=== PATIENT | female | born 1935 | race Caucasian/White ===

== ENCOUNTER 2016-10-02 10:32 | Day surgery (SDC) | payer MEDICARE, OTHER ==
[~2016-10-02] VITALS: Ht 168.9 cm; Wt 72.1 kg
[2016-10-02] VITALS (10 sets, daily range): BP systolic 178–238; BP diastolic 62–106; PULSE 67–76; RESP 14–21; TEMP 97.4–97.8; O2SAT 95–100; Ht 168.9 cm; Wt 72.1 kg
[~2016-10-02 10:32] MED LIST: ACET-2321 PO; ASCO-296 PO; ASPI-558 PO; CALC600T12 PO; CLOP75TA19 PO; DENO60DI SQ; GABA-222 PO; IBUP-1724 PO; LEVE500T26 PO; LOSA25TA34 PO
--- OUTSIDE RECORDS SUMMARY | 2016-10-02 10:37 | XMS REPORT | Continuity of Care Document ---
Author Author Helio SARMIENTO, Calderon SANCHEZ Ambulatory Address [address] [place] [address] Phone Care Team Providers Care Saw Superintendent Name Role Phone Velasquez Hutton PP Unavailable Payers Payer name Insurance type Covered constitution party ID Authorization(s) Unknown Problems Condition Effective Dates (start - stop) Clinical Status Metatarsal fracture - *Acute Syncope - Episodic Ankle sprain - *Acute Hypercholesterolemia - *Chronic Spasm of muscle - *Chronic Mixed Hyperlipidemia - Chronic Osteoporosis - Chronic Hypertension, Benign - Chronic Abnormality of gait - Chronic Unspecified cerebrovascular disease - Chronic Malignant Neoplasm, Breast - Chronic Influenza Vaccine - Faint - *Acute Head injury - *Acute Bronchitis, Acute - *Acute Syncope - Recurrent Head injury - *Acute Fracture of metatarsal bone(s), closed - *Acute Hypertension, Benign - *Chronic Hypotension, Orthostatic - Changing Hypercholesterolemia - *Chronic Abnormality of gait - *Chronic Hypertension, Benign - *Chronic Syncope - *Chronic Abnormal brain MRI - *Chronic Osteoporosis - *Chronic Mixed Hyperlipidemia - *Chronic Malignant Neoplasm, Breast - *Chronic Unspecified cerebrovascular disease - *Chronic Abnormality of gait - *Chronic Hypertension, Benign - Chronic Osteoporosis - Chronic Mixed Hyperlipidemia - Chronic Malignant Neoplasm, Breast - Chronic Unspecified cerebrovascular disease - Chronic Abnormality of gait - Chronic Leg pain, right - *Chronic Hypertension, Benign - *Chronic Fracture of metatarsal bone(s), closed - *Acute Syncope - Recurrent Fracture of metatarsal bone(s), closed - *Chronic Fracture of metatarsal bone(s), closed - Chronic Leg pain, left - *Chronic Orthostatic hypotension - Intermittent Other and unspecified hyperlipidemia - *Chronic Osteoporosis - *Chronic Osteoporosis - Chronic PURE HYPERCHOLESTEROLEM - PARALYSIS AGITANS - BENIGN HYPERTENSION - OSTEOPOROSIS NOS - LUMBAR DISC DISPLACEMENT - LUMB/LUMBOSAC DISC DEGEN - POSTLAMINECTOMY SYND NOS - SPIN STEN,LUMBR WO DERICK - LUMBAGO - LUMBOSACRAL NEURITIS NOS - OSTEOPOROSIS NOS - IDIOPATHIC SCOLIOSIS - SYNCOPE AND COLLAPSE - PURE HYPERCHOLESTEROLEM - PARALYSIS AGITANS - CHRONIC PAIN NEC - CHRONIC PAIN SYNDROME - BENIGN HYPERTENSION - MITRAL VALVE DISORDER - ASYMPT VARICOSE VEINS - MENOPAUSAL DISORDER NEC - LUMBOSACRAL SPONDYLOSIS - Family History Family Member Diagnosis Age At Onset Status Mother (Unknown) Hypertension Yes Brother (Unknown) Hypertension Yes Brother (Unknown) Diabetes Yes Family h/o (Unknown) Cancer - thyroid Yes Father (Unknown) Heart disease Yes Mother (Unknown) Diabetes Yes Social History Social History Element Description Quantity Unknown Allergies, Adverse Reactions, Alerts Substance Reaction Severity Status PERINDOPRIL ERBUMINE cough Unknown PERINDOPRIL ERBUMINE severe cough Unknown HYDROCHLOROTHIAZIDE bp drops Unknown Medications Medication Instructions Dosage Effective Dates (start - stop) Status gabapentin 300 mg capsule take 2 Capsule (600MG) by oral route 3 times every day 600 MG - Active VITAMIN [id number] ACID (unknown strength) Takes 2 tablets BID - 2013 No Longer Active multivitamin tablet take 1 Tablet by Oral route every day 0 - Active Aspir-81 81 mg tablet,delayed release take 1 tablet (81MG) by oral route every day 81 MG - Active Vitamin C 500 mg tablet take 1 by Oral route every day 0 - Active Tylenol Extra Strength 500 mg tablet take 2 tablet (1000MG) by oral route every 6 hours as needed 1000 MG - Active Fosamax 70 mg tablet Take 1 tablet by mouth every week. - Active Plavix 75 mg tablet take 1 tablet (75MG) by oral route every day 75 MG Mar - Active triamcinolone acetonide 0.1 % topical cream apply by topical route 2 times every day a thin layer to the affected area(s) 0 - Active Keppra 500 mg tablet take 1 tablet (500MG) by oral route 2 times every day 500 MG - Active Immunizations Vaccine Date Status Comments Flu (split) (3 yrs or older) completed Fluzone HD completed - Completed reason: other provider Td (adult) completed - Completed reason: source unspecified pneumo (2 yrs or older) (PPV23) completed - Completed reason: source unspecified Zoster completed - Completed reason: source unspecified Results Test Name Date and Time Measure Units Reference Range Abnormal Flag Comments Unknown Vital Signs Date / Time: Height Weight Pulse Rate Blood Pressure Temperature /11:02:00 77 /min 118/76 mm[Hg] 98.1 F Procedures Procedure Date Unknown Encounters Encounter Location Date Patient Visit [facility] Patient Visit [facility] Patient Visit [facility] Patient Visit [facility] Patient Visit [facility] Patient Visit [facility] Patient Visit [facility] Patient Visit [facility] Patient Visit [facility] Patient Visit [facility] Patient Visit [facility] Patient Visit [facility] Patient Visit [facility] Patient Visit Patient Visit [facility] Patient Visit [facility] Advance Directives Directive Effective Date Unknown
--- OUTSIDE RECORDS SUMMARY | 2016-10-02 10:37 | XMS REPORT | Continuity of Care Document ---
Author Author Iza Chris Ambulatory Address [address] [place] [id number] Phone Unavailable Care Team Providers Care In Room Dining Server Name Role Phone Velasquez Hutton PP Unavailable Payers Payer name Insurance type Covered green party ID Authorization(s) Unknown Problems Condition Effective Dates (start - stop) Clinical Status Hypotension, Orthostatic - Changing Hypercholesterolemia - *Chronic Abnormality of gait - *Chronic Hypertension, Benign - *Chronic Syncope - *Chronic Abnormal brain MRI - *Chronic Mixed Hyperlipidemia - Chronic Osteoporosis - Chronic Hypertension, Benign - Chronic Abnormality of gait - Chronic Unspecified cerebrovascular disease - Chronic Malignant Neoplasm, Breast - Chronic Spasm of muscle - *Chronic Hypercholesterolemia - *Chronic Influenza Vaccine - Faint - *Acute Head injury - *Acute Bronchitis, Acute - *Acute Ankle sprain - *Acute Syncope - Episodic Metatarsal fracture - *Acute Syncope - Recurrent Head injury - *Acute Fracture of metatarsal bone(s), closed - *Acute Hypertension, Benign - *Chronic Osteoporosis - *Chronic Mixed Hyperlipidemia - *Chronic Hypertension, Benign - *Chronic Leg pain, right - *Chronic Abnormality of gait - Chronic Unspecified cerebrovascular disease - Chronic Malignant Neoplasm, Breast - Chronic Mixed Hyperlipidemia - Chronic Osteoporosis - Chronic Hypertension, Benign - Chronic Abnormality of gait - *Chronic Unspecified cerebrovascular disease - *Chronic Malignant Neoplasm, Breast - *Chronic Fracture of metatarsal bone(s), closed - *Acute Syncope - Recurrent PURE HYPERCHOLESTEROLEM - PARALYSIS AGITANS - BENIGN HYPERTENSION - OSTEOPOROSIS NOS - LUMBOSACRAL SPONDYLOSIS - MENOPAUSAL DISORDER NEC - ASYMPT VARICOSE VEINS - MITRAL VALVE DISORDER - BENIGN HYPERTENSION - CHRONIC PAIN SYNDROME - CHRONIC PAIN NEC - PARALYSIS AGITANS - PURE HYPERCHOLESTEROLEM - SYNCOPE AND COLLAPSE - IDIOPATHIC SCOLIOSIS - OSTEOPOROSIS NOS - LUMBOSACRAL NEURITIS NOS - LUMBAGO - SPIN STEN,LUMBR WO DERICK - POSTLAMINECTOMY SYND NOS - LUMB/LUMBOSAC DISC DEGEN - LUMBAR DISC DISPLACEMENT - Osteoporosis - Chronic Osteoporosis - *Chronic Other and unspecified hyperlipidemia - *Chronic Orthostatic hypotension - Intermittent Leg pain, left - *Chronic Fracture of metatarsal bone(s), closed - Chronic Fracture of metatarsal bone(s), closed - *Chronic Fracture of metatarsal bone(s), closed - Chronic Fracture of metatarsal bone(s), closed - *Chronic Family History Family Member Diagnosis Age At [...] Dosage Effective Dates (start - stop) Status Keppra 500 mg tablet take 1 tablet (500MG) by oral route 2 times every day 500 MG - Active multivitamin tablet take 1 Tablet by [...] every day 75 MG Mar - Active gabapentin 300 mg capsule take 2 Capsule (600MG) by oral route 3 times every day 600 MG - Active triamcinolone acetonide 0.1 % topical cream apply by topical route 2 times every day a thin layer to the affected area(s) 0 - Active Immunizations Vaccine Date Status Comments [...] Height Weight Pulse Rate Blood Pressure Temperature /10:04:00 67.00 in 160.00 lbs 88 /min 142/90 mm[Hg] Procedures Procedure Date Unknown Encounters Encounter Location Date Patient Visit [facility] Mur Card Patient Visit [facility] Patient Visit [facility] Patient Visit [facility] Patient Visit [facility] Patient Visit [facility] Patient Visit [facility] Patient Visit [facility] Patient Visit [facility] Patient Visit Patient Visit [facility] Patient Visit [facility] Advance Directives Directive Effective Date Unknown
--- OUTSIDE RECORDS SUMMARY | 2016-10-02 10:37 | XMS REPORT | Continuity of Care Document ---
Author Author [facility] Organization [facility] Address Unknown Phone Unavailable Allergies Active Description Code Type Severity Reaction Onset Reported/Identified Relationship to Patient Clinical Status Yes ACEON [id number] Drug Allergy N/A N/A Yes HYDROCHLOROTHIAZIDE [id number] Drug Allergy N/A N/A Medications Medication Packaging Start Date Stop Date Route Dosage Sig [id number] 05/10/2013 Oral three times daily [id number] 01/10/2014 Oral twice daily Problems Procedures Results Encounters ACCT No. Visit Date/Time Discharge Status Pt. Type Provider Facility Loc./Unit Complaint [id number] 08/16/2013 09:10:00 08/16/2013 23 :59:59 [facility] Outpatient [id number] 07/19/2013 08:46:00 07/19/2013 23 :59:59 CLS Outpatient [id number] 07/14/2013 09:58:00 07/14/2013 23 :59:59 CLS Outpatient [id number] 07/05/2013 08:09:00 07/05/2013 23 :59:59 CLS Outpatient [id number] 07/03/2013 10:56:00 07/03/2013 23 :59:59 CLS Outpatient
--- OUTSIDE RECORDS SUMMARY | 2016-10-02 10:37 | XMS REPORT | Referral Summary ---
Author Author [facility] Organization [facility] Address Unknown Phone Unavailable Care Team Providers Care Operating Room Assistant Name Role Phone Ciara Hutton Primary Care Physician [phone] Encounter VC Date(s): 10/20/14 - 10/20/14 [facility], [address] [place] [id number] Discharge Diagnosis: Tinea corporis Discharge Disposition: 01-Home or Self Care Attending Physician: Barry Carey DO Admitting Physician: Barry Carey DO Vital Signs Most recent to 1 oldest [Reference Range]: Temperature Tympanic 36.1 degC [36.6-38.1 degC] *LOW* (10/20/14 9:33 AM) Peripheral Pulse 78 bpm Rate [60-100 bpm] (10/20/14 9:33 AM) Blood Pressure 115/62 mmHg [90-140/60-90 mmHg] (10/20/14 9:33 AM) Problem List Condition Effective Dates Status Health Status Informant Abnormal gait Active (finding)(Confirmed) Back Active pain/lumbagia(Confir med) Benign essential Active hypertension (disorder)(Confirmed ) Breast Active cancer(Confirmed) Cerebrovascular Active disease (disorder)(Confirmed ) Chronic pain Active syndrome(Confirmed) Closed fracture of Active metatarsal bone (disorder)(Confirmed ) passing Active out(Confirmed)1 post Active laminectomy(Confirme d)2 degenerated disc Active lumbar(Confirmed)3 Lt Active breast(Confirmed)4 imaging and mild Active carotid narrowin(Confirmed)5 shingles Active vaccine(Confirmed)6 FRACTURE OF Active METATARSAL BONE(S), CLOSED(Confirmed) Gait Active disturbance(Confirme d) High Active cholesterol(Confirme d) Hyperlipidemia(Confi Active rmed) Hypertension/high Active BP(Confirmed) Leg pain, Active left(Confirmed) Lumbar disc Active herniations(Confirme d) Malignant neoplasm Active of female breast (disorder)(Confirmed ) Mitral valve Active prolapse(Confirmed) Mixed hyperlipidemia Active (disorder)(Confirmed ) Orthostatic Active hypotension (disorder)(Confirmed ) ORTHOSTATIC Active HYPOTENSION(Confirme d) Osteoporosis Active (disorder)(Confirmed ) Osteoporosis(Confirm Active ed) Pain in limb Active (finding)(Confirmed) Parkinson's Active disease(Confirmed) Postmenopausal(Confi Active rmed) Radiculitis Active thoracic/lumbar(Conf irmed) Scoliosis kyohos Active idiopt(Confirmed)7 Small vessel Active disease, cerebrovascular(Conf irmed) Spinal stenosis Active lumbar(Confirmed) Spondylosis Active lumbosacral(Confirme d) Syncope(Confirmed) Active Syncope and collapse Active (disorder)(Confirmed ) Varicose Active veins(Confirmed) 1see nextgen 2see nextgen 3see nextgen 4see nextgen 5see nextgen 6see nextgen 7see nextgen Allergies, Adverse Reactions, Alerts Substance Reaction Severity Status hydrochlorothiazide bp drops Active HYPOTENSION Perindopril Erbumine Cough Unknown Active Medications alendronate 70 mg oral tablet See Instructions, TAKE 1 TABLET BY MOUTH WEEKLY ON AN EMPTY STOMACH. REMAIN UPRIGHT FOR 30 MINUTES, # 12 tabs, 1 Refill(s), eRx: [facility] [id number] , TAKE 1 TABLET BY MOUTH WEEKLY ON AN EMPTY STOMACH. REMAIN UPRIGHT FOR 30 MINUTES Start Date: 12/12/14 Status: Ordered aspirin 81 mg oral tablet, disintegrating 1 tabs, Oral, Daily, # 30 tabs, 0 Refill(s) Start Date: 01/03/14 Status: Ordered clopidogrel 75 mg oral tablet See Instructions, TAKE 1 TABLET BY MOUTH DAILY, # 90 tabs, eRx: [facility] [id number], TAKE 1 TABLET BY MOUTH DAILY Start Date: 03/24/15 Status: Ordered gabapentin 300 mg oral capsule 1 caps, Oral, TID, 0 Refill(s) Start Date: 01/03/14 Status: Ordered Keppra 500 mg oral tablet 2 tabs, Oral, BID, 0 Refill(s) Start Date: 01/03/14 Status: Ordered Multivitamins oral tablet 1 tabs, Oral, Daily, 0 Refill(s) Start Date: 01/03/14 Status: Ordered triamcinolone 0.1% topical cream See Instructions, APPLY BY TOPICAL ROUTE 2 TIMES EVERY DAY A THIN LAYER TO THE AFFECTED AREA(S), # 30 unknown unit, eRx: [facility] [id number], APPLY BY TOPICAL ROUTE 2 TIMES EVERY DAY A THIN LAYER TO THE AFFECTED AREA(S) Start Date: 08/01/14 Status: Ordered Tylenol Extra Strength 500 mg oral tablet 1,000 mg 2 tabs, Oral, q6hr, as needed for pain, 0 Refill(s) Start Date: 01/03/14 Status: Ordered Vitamin C 500 mg oral tablet 1 tabs, Oral, Daily, 0 Refill(s) Start Date: 01/03/14 Status: Ordered Results No data available for this section Immunizations Vaccine Date Refusal Reason influenza virus vaccine, inactivated1 02/08/15 influenza virus vaccine, inactivated 02/21/14 influenza virus vaccine, live 02/16/13 influenza virus vaccine, live 02/27/12 pneumococcal 13-valent conjugate vaccine 07/12/14 pneumococcal 23-polyvalent vaccine 03/02/99 tetanus-diphth toxoids (Td) adult/adol 11/01/05 zoster vaccine live 11/12/07 1Result Comment: [02/13/2015] Fluzone High-dose 2014- 0.5 ml syr Procedures Procedure Date Related Diagnosis Body Site L5-S1 laminectomy and discectomy 12/[address] Avery, 10 yr follow up 1999 RT Simple Mastectomy- no ca 1990 LT Mastectomy 1989 breast biopsies Caudal 11-27-2010 RT L5-S1 AND S1 TRANSFORAMINAL 01-24-2011 RT L5-S1 TRANSFORAMINAL 11-13-2010 Social History Social History Type Response Smoking Status Never smoker Assessment and Plan Extracted from: Title: Office Visit Note Author: Barry Carey DO Date: 10/20/14 Assessment/Plan Tinea corporis 1. Skin scraping done today, report is pending. 2. Lotrisone application 3 times a day for 2 weeks. Follow-up if no improvement. Ordered: clotrimazole-betamethasone topical, 1 katherine, Topical, TID, X 14 days, # 45 g, 0 Refill(s), Pharmacy: [facility] [id number] [facility] Fungal Smear Office Visit Level 3 Est [address]
--- OUTSIDE RECORDS SUMMARY | 2016-10-02 10:37 | XMS REPORT | Referral Summary ---
Author Author [facility] Organization [facility] Address Unknown Phone Unavailable Care Team Providers Care Assessor Name Role Phone Ciara Hutton Primary Care Physician [phone] Encounter VC Date(s): 03/09/15 - 03/09/15 [facility], Family [address] [place] [address] Discharge Disposition: 01-Home or Self Care Attending Physician: Joe Schrader APRN Admitting Physician: Joe Schrader APRN Vital Signs Most recent to 1 oldest [Reference Range]: Temperature Tympanic 36.0 degC [36.6-38.1 degC] *LOW* (03/09/15 9:00 AM) Peripheral Pulse 72 bpm Rate [60-100 bpm] (03/09/15 9:00 AM) Respiratory Rate 18 br/min [14-20 br/min] (03/09/15 9:00 AM) Blood Pressure 144/76 mmHg [90-140/60-90 mmHg] *HI* (03/09/15 9:00 AM) Problem List Condition Effective Dates Status [...] MINUTES, # 12 tabs, 1 Refill(s), eRx: [facility] [id number] , TAKE 1 TABLET BY MOUTH WEEKLY ON AN EMPTY STOMACH. REMAIN UPRIGHT FOR 30 MINUTES Start Date: 12/12/14 Status: Ordered aspirin 81 mg oral tablet, disintegrating 1 tabs, Oral, Daily, # 30 tabs, 0 Refill(s) Start Date: 01/03/14 Status: Ordered clopidogrel 75 mg oral tablet See Instructions, TAKE 1 TABLET BY MOUTH DAILY, # 90 tabs, eRx: [facility] [id number], TAKE 1 TABLET BY MOUTH DAILY Start Date: 12/23/14 Status: Ordered gabapentin 300 mg oral capsule [...] AFFECTED AREA(S), # 30 unknown unit, eRx: [facility] [id number], APPLY BY TOPICAL ROUTE 2 TIMES EVERY [...] Smoking Status Never smoker Assessment and Plan No data available for this section
--- OUTSIDE RECORDS SUMMARY | 2016-10-02 10:37 | XMS REPORT | Referral Summary ---
Author Author [facility] Organization [facility] Address Unknown Phone Unavailable Care Team Providers Care Cabinet Builder Name Role Phone Ciara Hutton Primary Care Physician [phone] Encounter VC Date(s): 03/13/15 - 03/13/15 [facility] [address] [place] [id number] Discharge Disposition: 01-Home or Self Care Attending Physician: Joe Schrader APRN Admitting Physician: Joe Schrader APRN Vital Signs Most recent to 1 oldest [Reference Range]: Peripheral Pulse 66 bpm Rate [60-100 bpm] (03/13/15 10:57 AM) Respiratory Rate 18 br/min [14-20 br/min] (03/13/15 10:57 AM) Blood Pressure 144/86 mmHg [90-140/60-90 mmHg] *HI* (03/13/15 10:57 AM) Problem List Condition Effective Dates Status [...] stenosis Active lumbar(Confirmed) Spondylosis Active lumbosacral(Confirme d) Syncope and collapse Active (disorder)(Confirmed ) Syncope(Confirmed) Active Varicose Active veins(Confirmed) 1see nextgen 2see nextgen 3see nextgen 4see nextgen 5see nextgen 6see nextgen 7see nextgen Allergies, Adverse Reactions, Alerts Substance Reaction Severity Status hydrochlorothiazide bp drops Active HYPOTENSION Perindopril Erbumine Cough Unknown Active Medications alendronate 70 mg oral tablet See Instructions, TAKE 1 TABLET BY MOUTH WEEKLY ON AN EMPTY STOMACH. REMAIN UPRIGHT FOR 30 MINUTES, # 12 tabs, eRx: [facility] [id number], TAKE 1 TABLET BY MOUTH WEEKLY ON AN EMPTY STOMACH. REMAIN UPRIGHT FOR 30 MINUTES Start Date: 08/21/15 Status: Ordered aspirin 81 mg oral tablet, disintegrating 1 tabs, Oral, Daily, # 30 tabs, 0 Refill(s) Start Date: 01/03/14 Status: Ordered clopidogrel 75 mg oral tablet See Instructions, TAKE 1 TABLET BY MOUTH DAILY, # 90 tabs, eRx: [facility] [facility] [id number], TAKE 1 TABLET BY MOUTH DAILY Start Date: 09/18/15 Status: Ordered gabapentin 300 mg oral capsule 1 caps, Oral, TID, 0 Refill(s) Start Date: 01/03/14 Status: Ordered Keppra 500 mg oral tablet 2 tabs, Oral, BID, 0 Refill(s) Start Date: 01/03/14 Status: Ordered losartan 25 mg oral tablet See Instructions, TAKE 1/2 TABLET(12.5 MG) BY MOUTH DAILY, # 45 tabs, 1 Refill(s ), eRx: [facility] [facility] [id number], TAKE 1/2 TABLET(12.5 MG) BY MOUTH DAILY Start Date: 09/15/15 Status: Ordered Multivitamins oral tablet 1 tabs, Oral, Daily, 0 Refill(s) Start Date: 01/03/14 Status: Ordered triamcinolone 0.1% topical cream See Instructions, APPLY BY TOPICAL ROUTE 2 TIMES EVERY DAY A THIN LAYER TO THE AFFECTED AREA(S), # 30 unknown unit, eRx: [facility] [id number], APPLY BY TOPICAL ROUTE 2 TIMES EVERY [...] Procedures Procedure Date Related Diagnosis Body Site Arthrocentesis, aspiration and/or injection, 03/13/15 intermediate joint or bursa (eg, temporomandibular, acromioclavicular, wrist, elbow or ankle, olecranon bursa); without ultrasound guidance L5-S1 laminectomy and discectomy 12/[address] Avery, 10 yr follow up 1999 RT Simple Mastectomy- no ca 1990 LT Mastectomy 1989 breast biopsies Caudal 11-27-2010 RT L5-S1 AND S1 TRANSFORAMINAL 01-24-2011 RT L5-S1 TRANSFORAMINAL 11-13-2010 Social History Social History Type Response Smoking Status Never smoker Assessment and Plan No data available for this section
--- OUTSIDE RECORDS SUMMARY | 2016-10-02 10:37 | XMS REPORT | Referral Summary ---
Author Author [facility] Organization [facility] Address Unknown Phone Unavailable Care Team Providers Care Automotive General Sales Manager Name Role Phone Ciara Hutton Primary Care Physician [phone] Encounter Date(s): 02/01/16 - 02/01/16 [facility] [address] [place] [address] [place] Discharge Diagnosis: Hyperlipidemia Discharge Diagnosis: Breast cancer Discharge Diagnosis: Spinal stenosis lumbar Discharge Diagnosis: Osteoporosis Discharge Diagnosis: Frail Elderly Discharge Diagnosis: Bilateral impacted cerumen Discharge Diagnosis: Benign essential hypertension Discharge Diagnosis: Seborrheic keratoses Discharge Disposition: 01-Home or Self Care Attending Physician: Velasquez Hutton MD Admitting Physician: Velasquez Hutton MD Vital Signs Most recent to 1 oldest [Reference Range]: Temperature Tympanic 35.5 degC [36.6-38.1 degC] *LOW* (02/01/16 8:37 AM) Peripheral Pulse 80 bpm Rate [60-100 bpm] (02/01/16 8:37 AM) Blood Pressure 142/71 mmHg [90-140/60-90 mmHg] *HI* (02/01/16 8:37 AM) Problem List Condition Effective Dates Status [...] Active cholesterol(Confirme d) Hyperlipidemia(Confi Active rmed) Hypertension/high < 01/03/14 Resolved BP(Confirmed) Leg pain, Active left(Confirmed) Lumbar disc Active herniations(Confirme d) Malignant neoplasm Active of female breast (disorder)(Confirmed ) Mitral valve Active prolapse(Confirmed) Mixed hyperlipidemia Active (disorder)(Confirmed ) Obesity(Confirmed) Active patient Orthostatic Active hypotension (disorder)(Confirmed ) ORTHOSTATIC Active [...] FOR 30 MINUTES, # 12 tabs, eRx: PATHE[employer] [id number], TAKE 1 TABLET BY MOUTH WEEKLY ON AN EMPTY STOMACH. REMAIN UPRIGHT FOR 30 MINUTES Start Date: 11/13/15 Status: Ordered aspirin 81 mg oral tablet, disintegrating 1 tabs, Oral, Daily, # 30 tabs, 0 Refill(s) Start Date: 01/03/14 Status: Ordered clopidogrel 75 mg oral tablet See Instructions, TAKE 1 TABLET BY MOUTH DAILY, # 90 tabs, eRx: [employer]HEOS [id number], TAKE 1 TABLET BY MOUTH DAILY Start Date: 12/18/15 Status: Ordered gabapentin 300 mg oral capsule 300 mg 1 caps, Oral, Daily, 0 Refill(s) Start Date: 01/03/14 Status: Ordered Keppra 500 mg oral tablet 2 tabs, Oral, BID, 0 Refill(s) Start Date: 01/03/14 Status: Ordered losartan 25 mg oral tablet See Instructions, TAKE 1/2 TABLET(12.5 MG) BY MOUTH DAILY, # 30 tabs, 5 Refill(s ), eRx: [employer]OS [id number], TAKE 1/2 TABLET(12.5 MG) BY MOUTH DAILY Start Date: 11/13/15 Status: Ordered Multivitamins oral tablet 1 tabs, Oral, Daily, 0 Refill(s) Start Date: 01/03/14 Status: Ordered triamcinolone 0.1% topical cream See Instructions, APPLY BY TOPICAL ROUTE 2 TIMES EVERY DAY A THIN LAYER TO THE AFFECTED AREA(S), # 30 unknown unit, eRx: [employer]OS [id number], APPLY BY TOPICAL ROUTE 2 TIMES EVERY DAY A THIN LAYER TO THE AFFECTED AREA(S) Start Date: 08/01/14 Status: Ordered Tylenol Extra Strength 500 mg oral tablet 1,000 mg 2 tabs, Oral, q6hr, as needed for pain, 0 Refill(s) Start Date: 01/03/14 Status: Ordered Vitamin C 500 mg oral tablet 1 tabs, Oral, Daily, 0 Refill(s) Start Date: 01/03/14 Status: Ordered Results Chemistry Most recent to 1 oldest [Reference Range]: Sodium Lvl [135-144 143 mEq/L mEq/L] (02/01/16 10:00 AM) Potassium Lvl 4.7 mEq/L [3.5-5.2 mEq/L] (02/01/16 10:00 AM) Chloride [99-111 104 mEq/L mEq/L] (02/01/16 10:00 AM) CO2 [22-31 mEq/L] 31 mEq/L (02/01/16 10:00 AM) AGAP [3-20] 8 (02/01/16 10:00 AM) BUN [10-20 mg/dL] 20 mg/dL (02/01/16 10:00 AM) Glucose Lvl [70-99 85 mg/dL mg/dL] (02/01/16 10:00 AM) Creatinine Lvl 0.94 mg/dL [0.57-1.11 mg/dL] (02/01/16 10:00 AM) eGFR [>60 mL/min] 57 mL/min 1 *ABN* (02/01/16 10:00 AM) Calcium Lvl 9.5 mg/dL [8.9-10.5 mg/dL] (02/01/16 10:00 AM) Chol [0-199 mg/dL] 249 mg/dL *HI* (02/01/16 10:00 AM) Trig [0-149 mg/dL] 115 mg/dL (02/01/16 10:00 AM) HDL [40-84 mg/dL] 75 mg/dL (02/01/16 10:00 AM) LDL [0-130 mg/dL] 151 mg/dL *HI* (02/01/16 10:00 AM) VLDL Cholesterol 23 mg/dL [0-28 mg/dL] (02/01/16 10:00 AM) Cardiac Risk 3.3 [0.0-5.0] (02/01/16 10:00 AM) 1Result Comment: Multiply eGFR results by 1.21 for race. Immunizations Vaccine Date Refusal Reason influenza virus vaccine, inactivated 02/01/16 influenza virus vaccine, inactivated1 02/08/15 influenza virus vaccine, inactivated 02/21/14 influenza virus vaccine, live 02/16/13 influenza virus vaccine, live 02/27/12 pneumococcal 13-valent conjugate vaccine 07/12/14 pneumococcal 23-polyvalent vaccine 03/02/99 tetanus-diphth toxoids (Td) adult/adol 11/01/05 zoster vaccine live 11/12/07 1Result Comment: [02/13/2015] Fluzone High-dose 2014- 0.5 ml syr Procedures Procedure Date Related Diagnosis Body Site Destruction (eg, laser surgery, 02/01/16 electrosurgery, cryosurgery, chemosurgery, surgical curettement), of benign lesions other than skin tags or cutaneous vascular proliferative lesions; 15 or more lesions L5-S1 laminectomy and discectomy 12/[address] Avery, 10 yr follow up 1999 RT Simple Mastectomy- no ca 1990 LT Mastectomy 1989 breast biopsies Caudal 11-27-2010 RT L5-S1 AND S1 TRANSFORAMINAL 01-24-2011 RT L5-S1 TRANSFORAMINAL 11-13-2010 Social History Social History Type Response Smoking Status Never smoker Assessment and Plan Extracted from: Title: CRMMP Author: Velasquez Hutton MD Date: 02/01/16 Impression and Plan Diagnosis Benign essential hypertension ([id number]-[id number] I10, Discharge, Medical). Bilateral impacted cerumen (DAQ60-WF H61.23, Discharge, Medical). Frail Elderly (ONT47-DB R54, Discharge, Medical). Hyperlipidemia (UQA63-MN E78.5, Discharge, Medical). Osteoporosis (BCX85-TK M81.0, Discharge, Medical). Seborrheic keratoses (HON79-KS L82.1, Discharge, Medical). Orders Orders (Selected) Outpatient Orders Future (On Hold) BMP: DEXA Axial Skeleton, BD Bone Density: Fasting Lipid Profile: .
--- OUTSIDE RECORDS SUMMARY | 2016-10-02 10:37 | XMS REPORT | Referral Summary ---
Author Author [facility] Organization [facility] Address Unknown Phone Unavailable Care Team Providers Care Powder Operator Name Role Phone Ciara Hutton Primary Care Physician [phone] Encounter VC Date(s): 09/15/15 - 09/15/15 [facility] [address] [place] [address] Discharge Diagnosis: Orthostatic hypotension Discharge Diagnosis: Benign essential hypertension Discharge Disposition: 01-Home or Self Care Attending Physician: Velasquez Hutton MD Admitting Physician: Velasquez Hutton MD Vital Signs Most recent to 1 oldest [Reference Range]: Temperature Tympanic 36.1 degC [36.6-38.1 degC] *LOW* (09/15/15 9:28 AM) Peripheral Pulse 75 bpm Rate [60-100 bpm] (09/15/15 9:28 AM) Blood Pressure 185/75 mmHg [90-140/60-90 mmHg] *HI* (09/15/15 9:28 AM) SpO2 98 % (09/15/15 9:28 AM) Problem List Condition Effective Dates Status [...] FOR 30 MINUTES, # 12 tabs, eRx: [employer] [id number], TAKE 1 TABLET BY MOUTH WEEKLY ON AN EMPTY STOMACH. REMAIN UPRIGHT FOR 30 MINUTES Start Date: 08/21/15 Status: Ordered aspirin 81 mg oral tablet, disintegrating 1 tabs, Oral, Daily, # 30 tabs, 0 Refill(s) Start Date: 01/03/14 Status: Ordered clopidogrel 75 mg oral tablet See Instructions, TAKE 1 TABLET BY MOUTH DAILY, # 90 tabs, eRx: [employer] [id number], TAKE 1 TABLET BY MOUTH DAILY Start Date: 06/19/15 Status: Ordered gabapentin 300 mg oral capsule 1 caps, Oral, TID, 0 Refill(s) Start Date: 01/03/14 Status: Ordered Keppra 500 mg oral tablet 2 tabs, Oral, BID, 0 Refill(s) Start Date: 01/03/14 Status: Ordered losartan 25 mg oral tablet See Instructions, TAKE 1/2 TABLET(12.5 MG) BY MOUTH DAILY, # 45 tabs, 1 Refill(s ), eRx: [employer] [id number], TAKE 1/2 TABLET(12.5 MG) BY MOUTH DAILY Start Date: 09/15/15 Status: Ordered Multivitamins oral tablet 1 tabs, Oral, Daily, 0 Refill(s) Start Date: 01/03/14 Status: Ordered triamcinolone 0.1% topical cream See Instructions, APPLY BY TOPICAL ROUTE 2 TIMES EVERY DAY A THIN LAYER TO THE AFFECTED AREA(S), # 30 unknown unit, eRx: [employer] [id number], APPLY BY TOPICAL ROUTE 2 TIMES EVERY [...] smoker Assessment and Plan Extracted from: Title: Blood Pressure Recheck/Post Author: Velasquez Hutton MD Date: ER Visit Impression and Plan Diagnosis Benign essential hypertension ([id number]-[id number] I10, Discharge, Medical). Orthostatic hypotension (CRZ20-JX I95.1, Discharge, Medical). Plan: We discussed her situation which is somewhat challenging. She has labile blood pressure, wide pulse pressure, and history of syncope due to orthostasis. In this situation, any treatment of the systolic and high readings is more likely to have complications of low blood pressures. After discussion and consideration, we decided to start very low dose of losartan. ( She previously had a cough reaction with lisinopril). Will start on Losartan 12.5mg (Comes in 2mg, cut pill in half) goal is 160 systolic. Drink adequate fluids. Please monitor your blood pressure 2-3 times per week for a month. If you are using your own cuff at home, Id suggest bringing it in for a comparison with our blood pressure to confirm that is reading accurately. If you are purchasing a new cuff, Id suggest visiting a web page which reviews commercial blood pressure cuff options: [email or web address] Goal BP is 160 systolic or less . Please keep a written record of your blood pressure readings and review them with us after one month.. Orders Orders (Selected) Prescriptions Prescribed losartan 25 mg oral tablet: See Instructions, 1/2 tablet=12.5 mg daily, 30 tabs , 0 Refill(s).
--- OUTSIDE RECORDS SUMMARY | 2016-10-02 10:38 | XMS REPORT | Referral Summary ---
Author Author [facility] Organization [facility] Address Unknown Phone Unavailable Care Team Providers Care Industrial Engineering Director Name Role Phone Ciara Hutton Primary Care Physician [phone] Encounter VC Date(s): 02/27/15 - 02/27/15 [facility] [address] [place] [address] Discharge Disposition: 01-Home or Self Care Attending Physician: Joe Schrader APRN Admitting Physician: Joe Schrader APRN Vital Signs Most recent to 1 oldest [Reference Range]: Temperature Tympanic 36.3 degC [36.6-38.1 degC] *LOW* (02/27/15 1:01 PM) Peripheral Pulse 72 bpm Rate [60-100 bpm] (02/27/15 1:01 PM) Respiratory Rate 18 br/min [14-20 br/min] (02/27/15 1:01 PM) Blood Pressure 118/72 mmHg [90-140/60-90 mmHg] (02/27/15 1:01 PM) Problem List Condition Effective Dates Status Health [...] MINUTES, # 12 tabs, 1 Refill(s), eRx: [employer] [id number] , TAKE 1 TABLET BY MOUTH WEEKLY ON AN EMPTY STOMACH. REMAIN UPRIGHT FOR 30 MINUTES Start Date: 12/12/14 Status: Ordered aspirin 81 mg oral tablet, disintegrating 1 tabs, Oral, Daily, # 30 tabs, 0 Refill(s) Start Date: 01/03/14 Status: Ordered clopidogrel 75 mg oral tablet See Instructions, TAKE 1 TABLET BY MOUTH DAILY, # 90 tabs, eRx: [employer] [id number], TAKE 1 TABLET BY MOUTH DAILY Start [...] AFFECTED AREA(S), # 30 unknown unit, eRx: [employer] [id number], APPLY BY TOPICAL ROUTE 2 TIMES EVERY DAY A THIN LAYER TO THE AFFECTED AREA(S) Start Date: 08/01/14 Status: Ordered triamcinolone acetonide See Instructions, TRIAMCINOLONE ACETONIDE 0.1% TOPICAL CREAM. APPLY BY TOPICAL ROUTE 2 TIMES EVERY DAY A THIN LAYER TO THE AFFECTED AREA(S)., 0 Refill(s) Start Date: 01/03/14 Status: Ordered Tylenol Extra Strength 500 mg oral tablet 2 tabs, Oral, q6hr, 0 Refill(s) Start Date: 01/03/14 Status: Ordered [...]
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
--- OUTSIDE RECORDS SUMMARY | 2016-10-02 10:38 | XMS REPORT | Continuity of Care Document ---
Author Author Bonny Mas MA [facility] Address [address] [place] [address] Phone Care Team Providers Care High School Guidance Counselor Name Role Phone Velasquez Hutton PP Unavailable Payers Payer name Insurance type Covered green party ID Authorization(s) Unknown Problems Condition Effective Dates (start - stop) Clinical Status Fracture of metatarsal bone(s), closed - *Acute Syncope - Recurrent Hypercholesterolemia - *Chronic Spasm of muscle - *Chronic Mixed Hyperlipidemia - Chronic Osteoporosis - Chronic Hypertension, Benign - Chronic Abnormality of gait - Chronic Unspecified cerebrovascular disease - Chronic Malignant Neoplasm, Breast - Chronic Influenza Vaccine - Faint - *Acute Head injury - *Acute Bronchitis, Acute - *Acute Metatarsal fracture - *Acute Syncope - Episodic Ankle sprain - *Acute Syncope - Recurrent Head injury [...] *Chronic Fracture of metatarsal bone(s), closed - *Chronic [...] Dosage Effective Dates (start - stop) Status multivitamin tablet take 1 Tablet by Oral [...] hours as needed 1000 MG - Active Plavix 75 mg tablet take [...] times every day 500 MG - Active Fosamax 70 mg tablet Take 1 tablet by mouth every week. - Active Immunizations Vaccine Date Status Comments [...] Height Weight Pulse Rate Blood Pressure Temperature /08:46:00 67.00 in 80 /min 112/82 mm[Hg] 97.8 F Procedures Procedure Date Unknown Encounters Encounter Location Date Patient Visit [facility] Patient Visit [facility] Patient Visit [facility] Patient Visit [facility] Patient Visit [facility] Patient Visit [facility] Patient Visit [facility] Patient Visit [facility] [place] [facility] Patient Visit [facility] Patient Visit [facility] Patient Visit [facility] Patient Visit [facility] Patient Visit [facility] Patient Visit [facility] Patient Visit Patient Visit [facility] Patient Visit [facility] Advance Directives Directive Effective Date Unknown
--- OUTSIDE RECORDS SUMMARY | 2016-10-02 10:38 | XMS REPORT | Referral Summary ---
Author Author [facility] Organization [facility] Address Unknown Phone Unavailable Care Team Providers Care Boarding House Cook Name Role Phone Ciara Hutton Primary Care Physician [phone] Encounter VC Date(s): 07/21/15 - 07/21/15 [facility] [address] [place] [address] Discharge Diagnosis: Benign essential hypertension Discharge Diagnosis: Orthostatic hypotension Discharge Diagnosis: Cerebrovascular disease Discharge Disposition: 01-Home or Self Care Attending Physician: Velasquez Hutton MD Admitting Physician: Velasquez Hutton MD Vital Signs Most recent to 1 oldest [Reference Range]: Peripheral Pulse 84 bpm Rate [60-100 bpm] (07/21/15 8:52 AM) Blood Pressure 160/80 mmHg [90-140/60-90 mmHg] *HI* (07/21/15 8:52 AM) SpO2 98 % (07/21/15 8:52 AM) Problem List Condition Effective Dates Status [...] FOR 30 MINUTES, # 12 tabs, eRx: [employer] [id number], TAKE 1 TABLET BY MOUTH WEEKLY ON AN EMPTY STOMACH. REMAIN UPRIGHT FOR 30 MINUTES Start Date: 05/29/15 Status: Ordered aspirin 81 mg oral tablet, disintegrating 1 tabs, Oral, Daily, # 30 tabs, 0 Refill(s) Start Date: 01/03/14 Status: Ordered clopidogrel 75 mg oral tablet See Instructions, TAKE 1 TABLET BY MOUTH DAILY, # 90 tabs, eRx: [employer] [id number], TAKE 1 TABLET BY MOUTH DAILY Start [...] AFFECTED AREA(S), # 30 unknown unit, eRx: [facility] [id number], APPLY BY TOPICAL ROUTE 2 TIMES EVERY [...] Extracted from: Title: Office Visit Note Author: Velasquez Hutton MD Date: 07/21/15 Assessment/Plan Benign essential hypertension Cerebrovascular disease Orthostatic hypotension Her situation is a bit challenging. She has a history of some changes on rainy imaging suggesting cerebrovascular changes. But she also has a history of orthostasis and syncope. This elevated blood pressure last night is of some concern but just a single reading (and also taken on home cuff without some verification). Suggested that she get her blood pressure cuff checked for verification, monitor blood pressures 2-3 times per week, and send me a list of her blood pressures in one month to review. For now, considering risk versus benefit I would tend to be conservative. We did talk about nonpharmacologic things that could be done such as salt avoidance and DASH diet. Other problems seem to be stable and she is generally doing well. Follow-up by report in one month and if doing well next appointment in 6 months.
--- OUTSIDE RECORDS SUMMARY | 2016-10-02 10:38 | XMS REPORT | Referral Summary ---
Author Author [facility] Organization [facility] Address Unknown Phone Unavailable Care Team Providers Care Assembly Press Operator Name Role Phone Ciara Hutton Primary Care Physician [phone] Encounter VC Date(s): 10/17/15 - 10/17/15 [facility] Family [address] [place] [address] Discharge Diagnosis: Benign essential hypertension Discharge Diagnosis: Muscle soreness Discharge Disposition: 01-Home or Self Care Attending Physician: Velasquez Hutton MD Admitting Physician: Velasquez Hutton MD Vital Signs Most recent to 1 oldest [Reference Range]: Temperature Tympanic 36.1 degC [36.6-38.1 degC] *LOW* (10/17/15 9:10 AM) Peripheral Pulse 77 bpm Rate [60-100 bpm] (10/17/15 9:10 AM) Blood Pressure 140/72 mmHg [90-140/60-90 mmHg] (10/17/15 9:10 AM) Problem List Condition Effective Dates Status [...] cholesterol(Confirme d) Hyperlipidemia(Confi Active rmed) Hypertension/high < 8/18/14 Resolved BP(Confirmed) Leg pain, Active left(Confirmed) Lumbar [...] FOR 30 MINUTES, # 12 tabs, eRx: [employer] [id number], TAKE 1 TABLET BY MOUTH WEEKLY ON AN EMPTY STOMACH. REMAIN UPRIGHT FOR 30 MINUTES Start Date: 08/21/15 Status: Ordered aspirin 81 mg oral tablet, disintegrating 1 tabs, Oral, Daily, # 30 tabs, 0 Refill(s) Start Date: 01/03/14 Status: Ordered clopidogrel 75 mg oral tablet See Instructions, TAKE 1 TABLET BY MOUTH DAILY, # 90 tabs, eRx: [employer] [id number], TAKE 1 TABLET BY MOUTH DAILY Start Date: 09/18/15 Status: Ordered gabapentin 300 mg oral capsule 1 caps, Oral, TID, 0 Refill(s) Start Date: 01/03/14 Status: Ordered Keppra 500 mg oral tablet 2 tabs, Oral, BID, 0 Refill(s) Start Date: 01/03/14 Status: Ordered losartan 25 mg oral tablet See Instructions, TAKE 1/2 TABLET(12.5 MG) BY MOUTH DAILY, # 45 tabs, 3 Refill(s ), Pharmacy: [facility], TO be refilled when her current supply runs out., TAKE 1/2 TABLET(12.5 MG) BY MOUTH DAILY Start Date: 10/17/15 Status: Ordered Multivitamins oral tablet 1 tabs, Oral, Daily, 0 Refill(s) Start Date: 01/03/14 Status: Ordered triamcinolone 0.1% topical cream See Instructions, APPLY BY TOPICAL ROUTE 2 TIMES EVERY DAY A THIN LAYER TO THE AFFECTED AREA(S), # 30 unknown unit, eRx: [facility] [id number], APPLY BY TOPICAL ROUTE 2 TIMES EVERY [...] 1 oldest [Reference Range]: Sodium Lvl [135-144 141 mEq/L mEq/L] (10/17/15 9:46 AM) Potassium Lvl 4.6 mEq/L [3.5-5.2 mEq/L] (10/17/15 9:46 AM) Chloride [99-111 103 mEq/L mEq/L] (10/17/15 9:46 AM) CO2 [22-31 mEq/L] 31 mEq/L (10/17/15 9:46 AM) AGAP [3-20] 7 (10/17/15 9:46 AM) BUN [10-20 mg/dL] 28 mg/dL *HI* (10/17/15 9:46 AM) Glucose Lvl [70-99 66 mg/dL mg/dL] *LOW* (10/17/15 9:46 AM) Creatinine Lvl 1.06 mg/dL [0.57-1.11 mg/dL] (10/17/15 9:46 AM) eGFR [>60 mL/min] 50 mL/min 1 *ABN* (10/17/15 9:46 AM) Calcium Lvl 9.4 mg/dL [8.9-10.5 mg/dL] (10/17/15 9:46 AM) Total CK [29-168 103 U/L U/L] (10/17/15 9:46 AM) 1Result Comment: Multiply eGFR results by 1.21 for race. Immunizations Vaccine Date Refusal Reason influenza virus vaccine, inactivated1 02/08/15 influenza virus vaccine, inactivated 02/21/14 influenza virus vaccine, live 02/16/13 influenza virus vaccine, live 02/27/12 pneumococcal 13-valent conjugate vaccine 07/12/14 pneumococcal 23-polyvalent vaccine 03/02/99 tetanus-diphth toxoids (Td) adult/adol 11/01/05 zoster vaccine live 11/12/07 1Result Comment: [02/13/2015] Fluzone High-dose 0.5 ml syr Procedures Procedure Date Related Diagnosis Body Site L5-S1 laminectomy and discectomy 12/[address] Avery, 10 yr follow up 1999 RT Simple Mastectomy- no ca 1990 LT Mastectomy 1989 breast biopsies Caudal 11-27-2010 RT L5-S1 AND S1 TRANSFORAMINAL 01-24-2011 RT L5-S1 TRANSFORAMINAL 11-13-2010 Social History Social History Type Response Smoking Status Never smoker Assessment and Plan Extracted from: Title: CDM OV-1 Month Follow Up Author: Velasquez Hutton MD Date: Impression and Plan Diagnosis Muscle soreness (OIC63-JW M79.1, Discharge, Medical). Benign essential hypertension (EBG32-YF I10, Discharge, Medical). Plan: Blood pressures are under good control. Continue with current care and medications. Will check BMP and CPK today. Follow up in 6 months with CRMMP or sooner if needed.. Orders Orders (Selected) Outpatient Orders Future (On Hold) BMP: CPK: Prescriptions Prescribed losartan 25 mg oral tablet: See Instructions, TAKE 1/2 TABLET(12.5 MG) BY MOUTH DAILY, 45 tabs, 3 Refill(s).
--- OUTSIDE RECORDS SUMMARY | 2016-10-02 10:38 | XMS REPORT | Referral Summary ---
Author Author [facility] Organization [facility] Address Unknown Phone Unavailable Care Team Providers Care Body Specialist Name Role Phone Ciara Hutton Primary Care Physician [phone] Encounter [facility] [id number] Date(s): 01/17/15 - 01/17/15 [facility] [address] [place] [address] Discharge Diagnosis: Orthostatic hypotension Discharge Diagnosis: Osteoporosis Discharge Diagnosis: Benign essential hypertension Discharge Diagnosis: Encounter for medication monitoring Discharge Diagnosis: Impacted cerumen Discharge Diagnosis: Gait disturbance Discharge Diagnosis: Breast cancer Discharge Diagnosis: Syncope and collapse Discharge Disposition: 01-Home or Self Care Attending Physician: Velasquez Hutton MD Admitting Physician: Velasquez Hutton MD Vital Signs Most recent to 1 oldest [Reference Range]: Temperature Tympanic 35.5 degC [36.6-38.1 degC] *LOW* (01/17/15 8:44 AM) Peripheral Pulse 64 bpm Rate [60-100 bpm] (01/17/15 8:44 AM) Problem List Condition Effective Dates Status [...] MINUTES, # 12 tabs, 1 Refill(s), eRx: [employer] [id number] , TAKE 1 TABLET BY MOUTH WEEKLY ON AN EMPTY STOMACH. REMAIN UPRIGHT FOR 30 MINUTES Start Date: 12/12/14 Status: Ordered aspirin 81 mg oral tablet, disintegrating 1 tabs, Oral, Daily, # 30 tabs, 0 Refill(s) Start Date: 01/03/14 Status: Ordered clopidogrel 75 mg oral tablet See Instructions, TAKE 1 TABLET BY MOUTH DAILY, # 90 tabs, eRx: [employer] [id number], TAKE 1 TABLET BY MOUTH DAILY Start [...] AFFECTED AREA(S), # 30 unknown unit, eRx: [facility] [id number], APPLY BY TOPICAL ROUTE 2 TIMES EVERY [...] Range]: Sodium Lvl [135-144 143 mEq/L mEq/L] (01/17/15 10:10 AM) Potassium Lvl 4.6 mEq/L [3.5-5.2 mEq/L] (01/17/15 10:10 AM) Chloride [99-111 105 mEq/L mEq/L] (01/17/15 10:10 AM) CO2 [22-31 mEq/L] 31 mEq/L (01/17/15 10:10 AM) AGAP [3-20] 7 (01/17/15 10:10 AM) BUN [10-20 mg/dL] 20 mg/dL (01/17/15 10:10 AM) Glucose Lvl [70-99 91 mg/dL mg/dL] (01/17/15 10:10 AM) Creatinine Lvl 0.91 mg/dL [0.57-1.11 mg/dL] (01/17/15 10:10 AM) eGFR [>60 mL/min] 59 mL/min 1 *ABN* (01/17/15 10:10 AM) Calcium Lvl 9.5 mg/dL [8.9-10.5 mg/dL] (01/17/15 10:10 AM) 1Result Comment: Multiply eGFR results by [...] smoker Assessment and Plan Extracted from: Title: Ambulatory Patient Education Author: Velasquez Hutton MD Date: 01/17/15 Family Medicine Cerumen Impaction A cerumen impaction is when the wax in your ear forms a plug. This plug usually causes reduced hearing. Sometimes it also causes an earache or dizziness. Removing a cerumen impaction can be difficult and painful. The wax sticks to the ear canal. The canal is sensitive and bleeds easily. If you try to remove a heavy wax buildup with a cotton tipped swab, you may push it in further. Irrigation with water, suction, and small ear curettes may be used to clear out the wax. If the impaction is fixed to the skin in the ear canal, ear drops may be needed for a few days to loosen the wax. People who build up a lot of wax frequently can use ear wax removal products available in your local drugstore. SEEK MEDICAL CARE IF: You develop an earache, increased hearing loss, or marked dizziness. Document Released: 06/12/2005 Document Revised: 07/27/2012 Document Reviewed: ExitCare Patient Information 2015 [employer]. This information is not intended to replace advice given to you by your health care provider. Make sure you discuss any questions you have with your health care provider. No follow up information was provided. Extracted from: Title: CRMMP Author: Velasquez Hutton MD Date: 01/17/15 Assessment/Plan Benign essential hypertension Breast cancer Encounter for medication monitoring Gait disturbance Impacted cerumen Orthostatic hypotension Osteoporosis Syncope and collapse Overall she seems to be doing well we will plan to continue present care. She had some wax in her ear canals which was irrigated away. We will check a BMP as medication monitoring. Follow-up 6 months or sooner as needed.
--- OUTSIDE RECORDS SUMMARY | 2016-10-02 10:38 | XMS REPORT | Referral Summary ---
Author Author [facility] Organization [facility] Address Unknown Phone Unavailable Care Team Providers Care Machine Fur Cleaner Name Role Phone Ciara Hutton Primary Care Physician [phone] Encounter [facility] [id number] Date(s): 01/17/15 - 01/17/15 [facility] [address] [place] [address] Discharge Diagnosis: Orthostatic hypotension Discharge Diagnosis: Osteoporosis [...] FOR 30 MINUTES, # 12 tabs, eRx: [employer] [id number], TAKE 1 TABLET BY MOUTH WEEKLY ON AN EMPTY STOMACH. REMAIN UPRIGHT FOR 30 MINUTES Start Date: 05/29/15 Status: Ordered aspirin 81 mg oral tablet, disintegrating 1 tabs, Oral, Daily, # 30 tabs, 0 Refill(s) Start Date: 01/03/14 Status: Ordered clopidogrel 75 mg oral tablet See Instructions, TAKE 1 TABLET BY MOUTH DAILY, # 90 tabs, eRx: [employer] [id number], TAKE 1 TABLET BY MOUTH DAILY Start [...] AFFECTED AREA(S), # 30 unknown unit, eRx: [facility] [id number], APPLY BY TOPICAL ROUTE 2 TIMES EVERY [...] 07/27/2012 Document Reviewed: ExitCare Patient Information 2015 [employer]. This information is not intended to replace [...]
--- OUTSIDE RECORDS SUMMARY | 2016-10-02 10:39 | XMS REPORT | Referral Summary ---
Author Author [facility] Organization [facility] Address Unknown Phone Unavailable Care Team Providers Care Tin Recovery Worker Name Role Phone Ciara Hutton Primary Care Physician [phone] Encounter [facility] Date(s): 03/09/15 - 03/09/15 [facility] [address] [place] [address] Discharge Diagnosis: Olecranon bursitis of left elbow Discharge Disposition: 01-Home or Self Care Attending [...] FOR 30 MINUTES, # 12 tabs, eRx: [employer] [id number], TAKE 1 TABLET BY MOUTH WEEKLY ON AN EMPTY STOMACH. REMAIN UPRIGHT FOR 30 MINUTES Start Date: 08/21/15 Status: Ordered aspirin 81 mg oral tablet, disintegrating 1 tabs, Oral, Daily, # 30 tabs, 0 Refill(s) Start Date: 01/03/14 Status: Ordered clopidogrel 75 mg oral tablet See Instructions, TAKE 1 TABLET BY MOUTH DAILY, # 90 tabs, eRx: [employer] [id number], TAKE 1 TABLET BY MOUTH DAILY Start [...] # 45 tabs, 1 Refill(s ), eRx: [employer] [id number], TAKE 1/2 TABLET(12.5 MG) BY MOUTH DAILY Start Date: 09/15/15 Status: Ordered Multivitamins oral tablet 1 tabs, Oral, Daily, 0 Refill(s) Start Date: 01/03/14 Status: Ordered triamcinolone 0.1% topical cream See Instructions, APPLY BY TOPICAL ROUTE 2 TIMES EVERY DAY A THIN LAYER TO THE AFFECTED AREA(S), # 30 unknown unit, eRx: [employer] [id number], APPLY BY TOPICAL ROUTE 2 TIMES EVERY [...] smoker Assessment and Plan Extracted from: Title: Injection olecranon bursa Author: Velasquez Hutton MD Date: 03/13 Assessment/Plan Olecranon bursitis of left elbow Procedure completed. Sterile dressing applied. Discussed expectations. Follow-up when necessary. Extracted from: Title: Office Visit Note Author: Joe Schrader LEAD AUDITOR Date: 03/09/15 Assessment/Plan Olecranon bursitis of left elbow Due to her discomfort and concern about this from an aesthetic standpoint I think it is reasonable to try to aspirate this for her. We will have her get set up on the procedure schedule at a time when both Dr. Hutton and I are available. We will have her stop her Plavix for 2-3 days before the procedure to minimize the risk of bleeding.
--- OUTSIDE RECORDS SUMMARY | 2016-10-02 10:39 | XMS REPORT | Referral Summary ---
Author Author [facility] Organization [facility] Address Unknown Phone Unavailable Care Team Providers Care Agriculture Professor Name Role Phone Ciara Hutton Primary Care Physician [phone] Encounter [facility] Date(s): 03/13/15 - 03/13/15 [facility] [address] [place] [address] Discharge Disposition: 01-Home or Self Care Attending [...] MINUTES, # 12 tabs, 1 Refill(s), eRx: [employer] [id number] , TAKE 1 TABLET BY MOUTH WEEKLY ON AN EMPTY STOMACH. REMAIN UPRIGHT FOR 30 MINUTES Start Date: 12/12/14 Status: Ordered aspirin 81 mg oral tablet, disintegrating 1 tabs, Oral, Daily, # 30 tabs, 0 Refill(s) Start Date: 01/03/14 Status: Ordered clopidogrel 75 mg oral tablet See Instructions, TAKE 1 TABLET BY MOUTH DAILY, # 90 tabs, eRx: [employer] [id number], TAKE 1 TABLET BY MOUTH DAILY Start [...] AFFECTED AREA(S), # 30 unknown unit, eRx: [facility] [id number], APPLY BY TOPICAL ROUTE 2 TIMES EVERY [...]
--- OUTSIDE RECORDS SUMMARY | 2016-10-02 10:39 | XMS REPORT | Referral Summary ---
Author Author [facility] Organization [facility] Address Unknown Phone Unavailable Care Team Providers Care Controls Project Engineer Name Role Phone Ciara Hutton Primary Care Physician [phone] Encounter [facility] [id number] Date(s): 01/17/15 - 01/17/15 [facility] [address] [place] [address] Discharge Diagnosis: Orthostatic hypotension Discharge Diagnosis: Osteoporosis [...] MINUTES, # 12 tabs, 1 Refill(s), eRx: [facility] [id number] , TAKE 1 TABLET BY MOUTH WEEKLY ON AN EMPTY STOMACH. REMAIN UPRIGHT FOR 30 MINUTES Start Date: 12/12/14 Status: Ordered aspirin 81 mg oral tablet, disintegrating 1 tabs, Oral, Daily, # 30 tabs, 0 Refill(s) Start Date: 01/03/14 Status: Ordered clopidogrel 75 mg oral tablet See Instructions, TAKE 1 TABLET BY MOUTH DAILY, # 90 tabs, eRx: [facility] [id number], TAKE 1 TABLET BY MOUTH DAILY Start [...] AFFECTED AREA(S), # 30 unknown unit, eRx: [facility] [id number], APPLY BY TOPICAL ROUTE 2 TIMES EVERY [...] 07/27/2012 Document Reviewed: ExitCare Patient Information 2015 [employer] This information is not intended to replace [...]
--- OUTSIDE RECORDS SUMMARY | 2016-10-02 10:39 | XMS REPORT | Referral Summary ---
Author Author [facility] Organization [facility] Address Unknown Phone Unavailable Care Team Providers Care Accounting Methods Analyst Name Role Phone Ciara Hutton Primary Care Physician [phone] Encounter [facility] [id number] Date(s): 01/17/15 - 01/17/15 [facility] [address] [place] [address] Discharge Diagnosis: Orthostatic hypotension Discharge [...] MINUTES, # 12 tabs, 1 Refill(s), eRx: [employer] [id number] , TAKE 1 TABLET BY MOUTH WEEKLY ON AN EMPTY STOMACH. REMAIN UPRIGHT FOR 30 MINUTES Start Date: 12/12/14 Status: Ordered aspirin 81 mg oral tablet, disintegrating 1 tabs, Oral, Daily, # 30 tabs, 0 Refill(s) Start Date: 01/03/14 Status: Ordered clopidogrel 75 mg oral tablet See Instructions, TAKE 1 TABLET BY MOUTH DAILY, # 90 tabs, eRx: [employer] [id number], TAKE 1 TABLET BY MOUTH DAILY Start [...] AFFECTED AREA(S), # 30 unknown unit, eRx: [facility] [id number], APPLY BY TOPICAL ROUTE 2 TIMES EVERY [...] 07/27/2012 Document Reviewed: ExitCare Patient Information 2015 [employer]. This information is not intended to replace [...]
--- OUTSIDE RECORDS SUMMARY | 2016-10-02 10:39 | XMS REPORT | Referral Summary ---
Author Organization Unknown Address Unknown Phone Unavailable Care Team Providers Care Title One Teacher Name Role Phone Ciara Hutton Primary Care Physician [phone] Encounter [facility] Date(s): 07/12/14 - 07/12/14 [facility] [address] [place] [address] Discharge Diagnosis: Need for pneumococcal vaccination Discharge Diagnosis: Benign essential hypertension Discharge Diagnosis: Seborrheic keratosis Discharge Diagnosis: Preventive measure Discharge Diagnosis: Near syncope Discharge Diagnosis: Encounter for medication monitoring Discharge Disposition: Home or Self Care Attending Physician: Velasquez Hutton MD Admitting Physician: Velasquez Hutton MD Vital Signs Most recent to 1 oldest [Reference Range]: Temperature Tympanic 35.6 degC [36.6-38.1 degC] *LOW* (07/12/14 8:57 AM) Peripheral Pulse 80 bpm Rate [60-100 bpm] (07/12/14 8:57 AM) Blood Pressure 150/70 mmHg [90-140/60-90 mmHg] *HI* (07/12/14 8:57 AM) Problem List Condition Effective Dates Status [...] FOR 30 MINUTES, # 12 tabs, eRx: [employer] [id number], TAKE 1 TABLET BY MOUTH WEEKLY ON AN EMPTY STOMACH. REMAIN UPRIGHT FOR 30 MINUTES Special Instructions: TAKE 1 TABLET BY MOUTH WEEKLY ON AN EMPTY STOMACH. REMAIN UPRIGHT FOR 30 MINUTES Start Date: 05/30/14 Status: Ordered aspirin 81 mg oral tablet, disintegrating 1 tabs, Oral, Daily, # 30 tabs, 0 Refill(s) Start Date: 01/03/14 Status: Ordered clopidogrel 75 mg oral tablet See Instructions, TAKE 1 TABLET BY MOUTH DAILY, # 90 tabs, 1 Refill(s), SALLY, eRx : [employer] [id number], TAKE 1 TABLET BY MOUTH DAILY Special Instructions: TAKE 1 TABLET BY MOUTH DAILY Start Date: 06/30/14 Status: Ordered gabapentin 300 mg oral capsule 2 caps, Oral, TID, 0 Refill(s) Start Date: 01/03/14 Status: Ordered Keppra 500 mg oral tablet 1 tabs, Oral, BID, 0 Refill(s) Start Date: 01/03/14 Status: Ordered Multivitamins oral tablet 1 tabs, Oral, Daily, 0 Refill(s) Start Date: 01/03/14 Status: Ordered triamcinolone acetonide See Instructions, TRIAMCINOLONE ACETONIDE 0.1% TOPICAL CREAM. APPLY BY TOPICAL ROUTE 2 TIMES EVERY DAY A THIN LAYER TO THE AFFECTED AREA(S)., 0 Refill(s) Special Instructions: TRIAMCINOLONE ACETONIDE 0.1% TOPICAL CREAM. APPLY BY TOPICAL ROUTE 2 TIMES EVERY DAY A THIN LAYER TO THE AFFECTED AREA(S). Start Date: 01/03/14 Status: Ordered Tylenol Extra Strength 500 mg oral tablet 2 tabs, Oral, q6hr, 0 Refill(s) Start Date: 01/03/14 Status: Ordered Vitamin C 500 mg oral tablet 1 tabs, Oral, Daily, 0 Refill(s) Start Date: 01/03/14 Status: Ordered Results Hematology Most recent to 1 oldest [Reference Range]: WBC [4.8-10.8 K/uL] 4.3 K/uL *LOW* (07/12/14 11:10 AM) RBC [4.00-5.20 M/uL] 5.10 M/uL (07/12/14 11:10 AM) Hgb [12.0-16.0 15.0 gm/dL gm/dL] (07/12/14 11:10 AM) Hct [37.0-47.0 %] 46.6 % (07/12/14 11:10 AM) MCV [82.0-99.0 fL] 91.4 fL (07/12/14 11:10 AM) MCH [27.0-32.0 pg] 29.4 pg (07/12/14 11:10 AM) MCHC [32.0-36.0 32.2 gm/dL gm/dL] (07/12/14 11:10 AM) RDW [11.5-14.5 %] 13.0 % (07/12/14 11:10 AM) Platelet [150-400 191 K/uL K/uL] (07/12/14 11:10 AM) MPV [8.8-14.8 fL] 11.6 fL (07/12/14 11:10 AM) Immature 0.2 % Granulocytes (07/12/14 11:10 AM) [0.0-1.0 %] Neutrophils [51-75 68 % %] (07/12/14:10 AM) Lymphocytes [20-46 18 % %] *LOW* (07/12/14 AM) Monocytes [4-11 %] 12 % *HI* (07/12/14 AM) Eosinophils [0-4 %] 2 % (07/12/1410 AM) Basophils [0-2 %] 1 % (07/12/14 AM) Neutro Absolute 2.89 THOUS [1.90-7.00 THOUS] (07/12/1410 AM) Lymph Absolute 0.76 THOUS [0.80-3.30 THOUS] *LOW* (07/12/14) Campbell Absolute 0.51 THOUS [0.30-1.00 THOUS] (07/12/14 AM) Eos Absolute 0.09 THOUS [0.00-0.50 THOUS] (07/12/14 AM) Baso Absolute 0.02 THOUS [0.00-0.20 THOUS] (07/12/1410 AM) Chemistry Most recent to 1 oldest [Reference Range]: Sodium Lvl [135-144 143 mEq/L mEq/L] (07/12/14 AM) Potassium Lvl 4.9 mEq/L [3.5-5.2 mEq/L] (07/12/14 AM) Chloride [99-111 103 mEq/L mEq/L] (07/12/14 AM) CO2 [22-31 mEq/L] 29 mEq/L (07/12/14 AM) AGAP [3-20] 11 (07/12/14 1110 AM) BUN [10-20 mg/dL] 22 mg/dL *HI* (07/12/14 AM) Glucose Lvl [70-99 80 mg/dL mg/dL] (07/12/1410 AM) Creatinine Lvl 0.95 mg/dL [0.57-1.11 mg/dL] (07/12/14 11:10 AM) eGFR [>60 mL/min] 56 mL/min 1 *ABN* (07/12/14 AM) Calcium Lvl 9.9 mg/dL [8.9-10.5 mg/dL] (07/12/14 11:10 AM) Albumin Lvl [3.4-4.8 4.3 gm/dL gm/dL] (07/12/14 11:10 AM) Total Protein 6.7 gm/dL [6.2-8.1 gm/dL] (07/12/14 11:10 AM) Globulin [1.8-4.0 2.4 gm/dL gm/dL] (07/12/14 11:10 AM) ALT [0-55 unit/L] 14 unit/L (07/12/14 11:10 AM) AST [5-34 unit/L] 20 unit/L (07/12/14 11:10 AM) Alk Phos [40-150 90 unit/L unit/L] (07/12/14 11:10 AM) Bili Total [0.2-1.2 0.5 mg/dL mg/dL] (07/12/14 11:10 AM) 1Result Comment: Multiply eGFR results by 1.21 for race. Immunizations Vaccine Date Refusal Reason influenza virus vaccine, inactivated 02/21/14 influenza virus vaccine, live 02/16/13 influenza virus vaccine, live 02/27/12 pneumococcal 13-valent conjugate vaccine 07/12/14 pneumococcal 23-polyvalent vaccine 03/02/99 tetanus-diphth toxoids (Td) adult/adol 11/01/05 zoster vaccine live 11/12/07 Procedures Procedure Date Related Diagnosis Body Site Destruction (eg, laser surgery, 07/12/14 electrosurgery, cryosurgery, chemosurgery, surgical curettement), of benign [...] Visit Note Author: Velasquez Hutton MD Date: 07/12/14 Assessment/Plan Benign essential hypertension Not currently treating with medication due to lability and concern that this may contribute to syncope concerns. Encounter for medication monitoring Ordered: Levetiracetam [facility] Near syncope We discussed avoiding the situations of prolonged standing, and responding to symptoms of progressive lightheadedness. Encourage adequate fluid intake. We'll check CBC and CMP to screen for metabolic/anemia causes.. Need for pneumococcal vaccination I recently discussed with her the new recommendations for Prevnar-13 vaccine. She wanted to go ahead with that as well. Preventive measure Seborrheic keratosis Liquid nitrogen freeze performed and discussed expectations. Follow-up 6 month/sooner if needed. Extracted from: Title: Ambulatory Patient Education Author: Velasquez Hutton MD Date: Family Medicine Near-Syncope Near-syncope is sudden weakness, dizziness, or feeling like you might pass out ( faint ). This can happen when getting up or while standing for a long time. It can be caused by a drop in blood pressure. It is common in people taking medicine for blood pressure. Fainting can happen when the blood pressure or pulse is too low. HOME CARE If you feel like you are going to pass out: Lie down right away. Breathe deeply and steadily. Move only when the feeling has gone away. Most of the time, this feeling lasts only a few minutes. You may feel tired for several hours. Drink enough fluids to keep your pee (urine ) clear or pale yellow. If you are taking blood pressure or heart medicine, stand up slowly. GET HELP RIGHT AWAY IF: You have a severe headache. Unusual pain develops in the chest, belly (abdomen ), or back. You have bleeding from the mouth or butt (rectum ), or you have black or tarry poop (stool ). You feel your heart beat differently than normal, or you have a very fast pulse. You pass out, or you twitch and shake when you pass out. You pass out when sitting or lying down. You feel confused. You have trouble walking. You are weak. You have vision problems. MAKE SURE YOU: Understand these instructions. Will watch your condition. Will get help right away if you are not doing well or get worse. Document Released: 10/21/2008 Document Revised: 07/27/2012 Document Reviewed: [facility] Patient Information 2014 [employer] [facility]. No follow up information was provided.
--- OUTSIDE RECORDS SUMMARY | 2016-10-02 10:39 | XMS REPORT | Continuity of Care Document ---
Author Author Velasquez Hutton MD, V Organization [facility] Address [address] [place] [address] Phone Care Team Providers Care Deskidding Machine Operator Name Role Phone Velasquez Hutton PP Unavailable Payers Payer name Insurance type Covered republican ID Authorization(s) Unknown Problems Condition Effective Dates (start - stop) Clinical Status Syncope - Recurrent Head injury - *Acute Fracture of metatarsal bone(s), closed - *Acute Hypertension, Benign - *Chronic Hypercholesterolemia - *Chronic Spasm of muscle - *Chronic Mixed Hyperlipidemia - Chronic Osteoporosis - Chronic Hypertension, Benign - Chronic Abnormality of gait - Chronic Unspecified cerebrovascular disease - Chronic Malignant Neoplasm, Breast - Chronic Influenza Vaccine - Faint - *Acute Head injury - *Acute Bronchitis, Acute - *Acute Metatarsal fracture - *Acute Syncope - Episodic Ankle sprain - *Acute Hypotension, Orthostatic - Changing Hypercholesterolemia - *Chronic [...] Recurrent Fracture of metatarsal bone(s), closed - Chronic [...] Dosage Effective Dates (start - stop) Status Lortab 5 mg-500 mg tablet take 1 tablet by oral route every 6 hours as needed for pain 0 - No Longer Active triamcinolone acetonide 0.1 % topical cream apply by topical route 2 times every day a thin layer to the affected area(s) 0 - Active multivitamin tablet take 1 Tablet [...] times every day 600 MG - Active Keppra 500 mg tablet take [...] Measure Units Reference Range Abnormal Flag Comments Panel Description: CBC WBC 09:50:00 5.5 K/uL 4.8-10.8 RBC 09:50:00 4.49 M/uL 4.00-5.20 HGB 09:50:00 13.5 g/dl 12.0-16.0 HCT 09:50:00 41.8 % 37.0-47.0 MCV 09:50:00 93.1 fL 82.0-99.0 MCH 09:50:00 30.1 pg 27.0-32.0 MCHC 09:50:00 32.3 g/dL 32.0-36.0 RDW 09:50:00 12.8 % 11.5-14.5 MPV 09:50:00 11.6 fL 8.8-14.8 Platelet Count 09:50:00 174 K/uL 150-400 Immature Granulocytes 09:50:00 0.0 % 0.0-1.0 Absolute Neutrophils 09:50:00 3.88 THOUS 1.90-7.00 Absolute Lymphocytes 09:50:00 0.74 THOUS 0.80-3.30 L Absolute Monocytes 09:50:00 0.70 THOUS 0.30-1.00 Absolute Eosinophils 09:50:00 0.17 THOUS 0.00-0.50 Absolute Basophils 09:50:00 0.02 THOUS 0.00-0.20 Neutrophils 09:50:00 70 % 51-75 Lymphocytes 09:50:00 13 % 20-46 L Monocytes 09:50:00 13 % 4-11 H Eosinophils 09:50:00 3 % 0-4 Basophils 09:50:00 0 % 0-2 Testing performed at [facility] [address] [facility] [address] Cashier Courtesy Booth Puneet Soto MD Panel Description: Chemistry Profile Glucose 09:50:00 89 mg/dL 70-99 BUN 09:50:00 20 mg/dL 10-20 Creatinine 09:50:00 0.86 mg/dL 0.57-1.11 Calcium 09:50:00 9.4 mg/dL 8.9-10.5 Sodium 09:50:00 144 mEq/L 135-144 Potassium 09:50:00 4.5 mEq/L 3.5-5.2 Chloride 09:50:00 106 mEq/L 99-111 CO2 09:50:00 31 mEq/L 22-31 Albumin 09:50:00 3.9 g/dL 3.4-4.8 Bilirubin Total 09:50:00 0.5 mg/dL 0.2-1.2 Alkaline Phosphatase 09:50:00 80 U/L 40-150 Protein 09:50:00 6.3 g/dL 6.2-8.1 ALT (SGPT) 09:50:00 16 U/L 0-55 AST (SGOT) 09:50:00 22 U/L 5-34 Anion Gap 09:50:00 7 3-20 Globulin 09:50:00 2.4 g/dL 1.8-4.0 Testing performed at [facility] [address] [place] [address] [employer]esy Booth Puneet Soot MD Panel Description: [facility] eGFR 09:50:00 >60 mL/min >60 Multiply eGFR results by 1.21 for race.Testing performed at [facility] [address] [place] [address] [employer]ier [employer]esy Booth Puneet Soto MD Vital Signs Date / Time: Height Weight Pulse Rate Blood Pressure Temperature /08:20:00 67.00 in 72 /min 138/74 mm[Hg] 97.7 F Procedures Procedure Date Unknown Encounters Encounter Location Date Patient Visit [facility] Patient Visit [facility] Patient Visit [facility] Patient Visit [facility] Patient Visit [facility] Patient Visit [facility] Patient Visit [facility] Patient Visit [facility] Patient Visit [facility] Patient Visit [facility] Patient Visit [facility] Patient Visit [facility] Patient Visit [facility] Patient Visit [facility] Patient Visit Patient Visit [facility] Patient Visit [facility] Advance Directives Directive Effective Date Unknown
--- OUTSIDE RECORDS SUMMARY | 2016-10-02 10:39 | XMS REPORT | Referral Summary ---
Author Author [facility] Organization [facility] Address Unknown Phone Unavailable Care Team Providers Care Laboratory Animal Care Veterinarian Name Role Phone Ciara Hutton Primary Care Physician [phone] Encounter VC Date(s): 03/14/16 - 03/14/16 [facility] [address] [place] [id number] Discharge Disposition: 01-Home or Self Care Attending Physician: Velasquez Hutton MD Admitting Physician: Velasquez Hutton MD Vital Signs Most recent to 1 oldest [Reference Range]: Temperature Tympanic 36.7 degC [36.6-38.1 degC] (03/14/16 10:09 AM) Peripheral Pulse 73 bpm Rate [60-100 bpm] (03/14/16 10:09 AM) Blood Pressure 142/75 mmHg [90-140/60-90 mmHg] *HI* (03/14/16 10:09 AM) SpO2 96 % (03/14/16 10:09 AM) Problem List Condition Effective Dates Status [...] cholesterol(Confirme d) Hyperlipidemia(Confi Active rmed) Hypertension/high < 818/14 Resolved BP(Confirmed) Leg pain, Active left(Confirmed) Lumbar [...] HYPOTENSION Perindopril Erbumine Cough Unknown Active Medications aspirin 81 mg oral tablet, disintegrating 1 tabs, Oral, Daily, # 30 tabs, 0 Refill(s) Start Date: 01/03/14 Status: Ordered clopidogrel 75 mg oral tablet See Instructions, TAKE 1 TABLET BY MOUTH DAILY, # 90 tabs, eRx: [facility] [id number], TAKE 1 TABLET BY MOUTH DAILY Start Date: 12/18/15 Status: Ordered denosumab 60 mg/mL subcutaneous solution 60 mg 1 mL, SubCutaneous, q6mo, # 1 mL, 0 Refill(s) Start Date: 03/14/16 Status: Ordered gabapentin 300 mg oral capsule 300 mg 1 caps, Oral, Daily, 0 Refill(s) Start Date: 01/03/14 Status: Ordered Keppra 500 mg oral tablet 2 tabs, Oral, BID, 0 Refill(s) Start Date: 01/03/14 Status: Ordered losartan 25 mg oral tablet See Instructions, TAKE 1/2 TABLET(12.5 MG) BY MOUTH DAILY, # 30 tabs, 5 Refill(s ), eRx: [facility] [id number], TAKE 1/2 TABLET(12.5 MG) BY MOUTH DAILY Start Date: 11/13/15 Status: Ordered Multivitamins oral tablet 1 tabs, Oral, Daily, 0 Refill(s) Start Date: 01/03/14 Status: Ordered triamcinolone 0.1% topical cream See Instructions, APPLY BY TOPICAL ROUTE 2 TIMES EVERY DAY A THIN LAYER TO THE AFFECTED AREA(S), # 30 unknown unit, eRx: [id number], APPLY BY TOPICAL ROUTE 2 TIMES EVERY [...] live 11/12/07 1Result Comment: [02/13/2015] Fluzone High-dose 2014-16 0.5 ml syr Procedures Procedure Date Related [...]
--- NOTE | 2016-10-02 12:24 | ANESPREOP ---
Anesthesia Record Date and Time DATE: 10/02/16 TIME: 12:22 Pre-Op Diagnosis rt. cat. Proposed Surgical Procedure CATARACT RIGHT Allergies: Coded Allergies: perindopril erbumine (Verified Allergy, Mild, PERSISTENT COUGH, 09/14/15) hydrochlorothiazide (Verified Adverse Reaction, Unknown, LOW BP, 09/14/15) Ht/Wt/BMI Height: 5 ' 6 " Weight: kg BMI: kg/m2 Medications Inpatient Medications Current Medications Medications (Trade) Dose Ordered Sig/Annmarie Start Time Stop Time Status Last Admin Dose Admin Cyclopentolate HCl (Cyclogyl 2%) 1 drop Q5M 10/02/16 16:00 10/02/16 16:11 Tropicamide (Mydriacyl 1% Eye Drops) 1 drop Q5M 10/02/16 16:00 10/02/16 16:11 Proparacaine HCl (Alcaine 0.5% Eye Drops) 1 drop Q5M 10/02/16 16:00 10/02/16 16:11 Phenylephrine HCl (Amos-Synephrine 2.5% Eye Drops) 1 drop Q5M 10/02/16 16:00 10/02/16 16:11 Tetracaine HCl (Tetracaine 0.5% Eye Drops) 1 drop PRN PRN 10/02/16 16:00 Moxifloxacin HCl (Vigamox) 1 drop Q5M 10/02/16 16:00 10/02/16 16:11 Nepafenac (Nevanac 0.1% Eye Drops) 1 drop Q5M 10/02/16 16:00 10/02/16 16:11 Acetaminophen (Tylenol) 325 Mg Tablet, 1-2 TAB PO QID PRN for PAIN, (Reported) Ascorbic Acid (Vitamin C) 500 Mg Tablet, 500 MG PO DAILY, (Reported) Aspirin (Aspir 81) 81 Mg Tablet.dr, 81 MG PO HS, (Reported) Calcium Carbonate (Calcium) 600 Mg Tablet, 600 MG PO DAILY, (Reported) Clopidogrel Bisulfate (Plavix) 75 Mg Tablet, 75 MG PO DAILY, (Reported) Denosumab (Prolia) 60 Mg/1 Ml Inj, 1 UNIT SQ Q6M, (Reported) Gabapentin (Gabapentin) 600 Mg Tablet, 300 MG PO HS, (Reported) Ibuprofen (Ibuprofen) 200 Mg Tablet, 2 TAB PO Q4H PRN for PAIN, (Reported) Levetiracetam (Levetiracetam) 500 Mg Tablet, 1,000 MG PO BID, (Reported) Losartan Potassium (Losartan Potassium) 25 Mg Tablet, 0.5 TAB PO DAILY, ( Reported) Currently on Beta Pattie: No Medical/Surgical History Anesthesia PMH: Reports: *Hypertension, Arthritis, CVA/Stroke/TIA (PT THINKS AROUND 2003 SHE HAD A BLURRED VISION POSSIBLE TIA EVENT.), Cancer (BREAST CA WITH BILAT MASTECTOMY 1990), Obesity, Pneumonia, Denies: *Angina, * Diabetes, *Dyspnea, *[place], Anesthesia Reactions (NO AIRWAY ISSUES-SLOW TO WAKE UP) , Asthma, Blood Transfusion Reac, CHF, COPD, Cardiac Arrythmia, Clotting Problems (ON PLAVIX/ASA), Deep Vein Thrombosis, Glaucoma, Headaches, Hepatitis, Hiatal Hernia, Malignant Hyperthermia, Pacemaker, Reflux, Renal Disease, Rheumatic Fever, Seizures, Sleep Apnea, Thyroid Disease, Tuberculosis Smoking Status: Never smoker Has pt. smoked today?: No Use Chewing Tobacco?: No Second Hand Exposure: No Substance Use Type: does not use Substance last used: unknown Alcohol Intake: none Last Drink: unknown HX of Last Menstrual Period: AGE 48 Past Surgical History Orthopedic Surgeries: Yes - RECENT BACK SURGERY 11-28-09 Abdominal Surgeries: No Genitourinary Surgeries: No Cardiac Surgeries: No Endocrine Surgeries: No Reproductive Surgeries: No Neurological Surgeries: No Ear Surgeries: No Nose Surgeries: No Throat Surgeries: No Other Surgeries: Yes - STEPHAN MASTECTOMY Anesthesia Adverse Reactions: FOUND none Hx of Motion Sickness: No Pertinent Findings EKG Rhythm: Sinus Rhythm Physical Exam Respiratory: Bilat breath sounds equal, Lungs clear Cardiovascular: FOUND Regular rate, rhythm, FOUND No murmur Airway Assessment Mallampati Score: II TMD: 3 Fingerbreadths Neck Extension: Good Overall Assessment: No Airway Concerns ASA: 2 Plan Anesthesia Plan: MAC Discussion Discussed risks/options/alternatives of anesthesia and questions answered. Patient consents. Nursing pain assessment noted. Attestation Statement Prior to the delivery of any anesthetic medication, I examined the patient, developed the plan, obtained the patient's consent and discussed the risk and benefits of the procedure with the patient/guardian. CHITRA KERR CRNA October 02, 2016 12:24
[2016-10-02] MEDS: NEPAFENAC 0.1% EYE DROPS 3ml RIGHT EYE SCH ×3 (12:29→12:44)
[2016-10-02] MEDS: PROPARACAINE 0.5% EYE DROPS 15ml RIGHT EYE SCH ×3 (12:30→12:45)
[2016-10-02] MEDS: PHENYLEPHRINE 2.5% EYE DROPS 5ml RIGHT EYE SCH ×3 (12:30→12:45)
[2016-10-02] MEDS: CYCLOPENTOLATE 2% EYE DROPS 2ml RIGHT EYE SCH ×3 (12:30→12:45)
[2016-10-02] MEDS: MOXIFLOXACIN 0.5% EYE DROPS 3ml RIGHT EYE SCH ×3 (12:30→12:45)
[2016-10-02] MEDS: TROPICAMIDE 1% EYE DROPS 3ml RIGHT EYE SCH ×3 (12:31→12:45)
[2016-10-02] MEDS ORDERED: MIDAZOLAM 2mg/2ml INJECTION IV PRN (13:45)
[2016-10-02] MEDS ORDERED: FENTANYL 100mcg/2ml INJECTION ONE (13:47)
--- NOTE | 2016-10-02 14:34 | ANESPO ---
Post-Op Note Date 10/02/16 Time: 14:33 Status Pt Participated in Evaluation: Pt participated in person Vital Signs Date Time Temp Pulse Resp B/P Pulse Ox O2 Delivery O2 Flow Rate FiO2 10/02/16 14:24 97.4 70 14 206/86 95 Room Air Respiratory Function: Airway patent, Regular respirations Cardiovascular Function: Regular pulse Mental Status: Alert/oriented Pain Level Intensity: 0 (0) Hydration: Taking po fluids Complications during Recovery None apparent Post-Anesthesia Notes pt. robinson. well Follow-Up Instructions Instructions Per Surgeon Additional Information none CHITRA KERR CRNA October 02, 2016 14:34
[2016-10-02] MEDS ORDERED: LIDOCAINE 1% (10mg/ml) 30ml SDV IJ ONE (15:18)
[2016-10-02] MEDS ORDERED: NS FOR INJ. 20 ML VIAL INJ ONE (15:18)
[2016-10-02] MEDS ORDERED: BRIMONIDINE 0.2% EYE DROPS 5ml BOTH EYES ONE (15:18)
[2016-10-02] MEDS ORDERED: TETRACAINE 0.5% EYE DROPS 4ml BOTTLE OP ONE (15:18)
[2016-10-02] MEDS ORDERED: TRYPAN BLUE 0.5 ML SYRINGE BOTH EYES ONE (15:18)
[2016-10-02] MEDS ORDERED: TETRACAINE 0.5% EYE DROPS 4ml BOTTLE RIGHT EYE PRN (16:00)
[2016-10-02] MEDS ORDERED: LIDOCAINE 1% (10mg/ml) 2ml SDV INJ ONE (16:00)
[2016-10-02] MEDS ORDERED: MIDAZOLAM 2mg/2ml INJECTION IV ONE (16:13)
--- NOTE | 2016-10-04 14:20 | OPNOTEF ---
DATE OF PROCEDURE 10/02/2016 PREOPERATIVE DIAGNOSIS Cataract, right eye. POSTOPERATIVE DIAGNOSIS Cataract, right eye. PROCEDURE Phacoemulsification and staining of anterior capsule with Trypan blue with implantation of 21.0 diopter intraocular lens model [id number], right eye. ANESTHESIA Topical block monitored by Colton Joshi CRNA. SURGEON Kaitlin Castillo MD PROCEDURE IN DETAIL The patient came to the [facility] and was escorted to the preanesthesia area where the appropriate monitoring, eyedrops, and topical anesthetic were administered. The patient was then taken into the operating room and the eye was prepped and draped in the standard sterile manner for ophthalmic surgery. A lid speculum was placed between the lids and the eye was irrigated with 5% Povidine iodine solution, followed by copious irrigation with sterile balanced salt solution after three minutes. The eye surgery began with the initial side port incision through the peripheral clear cornea. Lidocaine preservative free 1% was injected into the anterior chamber. Several drops of Trypan blue were placed on the anterior capsule to stain the capsule. The Trypan blue was irrigated out of the anterior chamber with balanced salt solution. Viscoat viscoelastic was exchanged for aqueous. A clear cornea incision was made just anterior to the vascular arcade with a steel keratome blade. A continuous curvilinear anterior capsulorrhexis was performed, followed by hydrodissection and hydrodelineation of the cataract. The phacoemulsification tip was then inserted through the incision into the anterior chamber, and the nucleus of the cataract was emulsified. The remaining cortical material was then aspirated and the posterior capsule was cleaned and polished. A posterior chamber intraocular lens was then implanted into the capsular bag with viscoelastic support. The viscoelastic was then removed from the eye by aspiration. The clear cornea incision was inspected to ensure a water tight seal. The lid speculum was removed. Vigamox, Nevanac, and Brimonidine eyedrops were instilled onto the eye and an eye shield was taped over the eye. The patient was dismissed to the responsible republican with postoperative instructions and a planned follow-up visit. DAMIAN
== END 2016-10-02 15:13 | disposition home or self-care (01) ==
LOC: NSC 10:32
PROVIDERS: ATTEND Ophthalmology
DX: H26.8 Other specified cataract (principal); H25.12 Age-related nuclear cataract, left eye; H57.03 Miosis; Z79.82 Long term (current) use of aspirin; Z79.899 Other long term (current) drug therapy; Z91.81 History of falling
CPT/HCPCS: 66982; A9270; C1780; J2250; J3010